=== PATIENT | female | born 1990 | race Caucasian/White ===

== ENCOUNTER 2016-05-12 12:00 | Day surgery (SDC) | payer OTHER ==
[2016-05-12] MEDS ORDERED: BUPIVACAINE HCL/PF 0.25% 10 ML VIAL INJ ONE (12:54)
[2016-05-12] MEDS ORDERED: FENTANYL 100 MCG/2 ML VIAL ONE (13:00)
[2016-05-12] MEDS ORDERED: MIDAZOLAM HCL 2 MG/2 ML VIAL ONE (13:00)
[2016-05-12] MEDS ORDERED: ONDANSETRON HCL 4 MG/2 ML VIAL ONE (13:00)
[2016-05-12] MEDS ORDERED: FENTANYL 100 MCG/2 ML VIAL IV PRN (13:10)
[2016-05-12] MEDS ORDERED: HYDROmorphone HCL 1 MG/ML SYR IV PRN (13:10)
[2016-05-12] MEDS ORDERED: BUPIVACAINE/EPI 0.25% 1 VIAL VIAL ONE (13:39)
[2016-05-12] MEDS ORDERED: LACTATED RINGERS 1,000 ML IV SCH (14:00)
--- NOTE | 2016-05-12 14:27 | PROCEDURE NOTE: Gen Surgery ---
General Surgery Procedure Note - Date of Encounter Date of Encounter: 05/12/16 - Brief Operative Note (1) Other benign neoplasm of skin of trunk Date of procedure: 05/12/16 Pre-Op Diagnosis: Left axillary mass Post-op diagnosis: same Procedure: Excision of left axillary mass Anesthesia Type: Mac Physician: RAHEL EASLEY Pathology: sent X-ray taken: No Images viewed by surgeon: No Images viewed by radiologist: No Sponge and instrument counts: correct Condition: stable Disposition: same day Narrative: There was not one discrete mass but multiple areas of lipomas with one firm area which may have been secondary to fat necrosis.
[2016-05-12 15:08] VITALS: TEMP 98.1
[2016-05-12 15:09] VITALS: PULSE 71; O2SAT 91
[2016-05-12 15:11] VITALS: BP 109/69; RESP 17
--- NOTE | 2016-05-12 18:53 | OPERATIVE REPORT ---
DATE OF SURGERY: 05/12/16 SURGEON: Virgilio Driver MD ANESTHESIA: Monitored anesthesia care by Yogi James CRNA. PREOPERATIVE DIAGNOSIS: Left axillary mass. POSTOPERATIVE DIAGNOSIS: Left axillary mass. PROCEDURE PERFORMED: Excision of left axillary mass. FINDINGS: At the time of exploration there was an approximately lemon-size mass of fatty tissue in the axilla. This was made up of multiple lobules of lipoma. There was 1 area which appeared firmer than the surrounding errors and may have undergone fat necrosis. SUMMARY: The patient was taken to the operating room and placed in the supine position. Time out was called and the correct patient, correct preoperative medications and correct procedure were verified. The left axilla was then prepped with ChloraPrep solution. After 3 minutes had elapsed for the prep to dry, draping occurred. The incision was marked out in a transverse orientation. Marcaine 0.25% without epinephrine was infiltrated and a total of about 45 mL was used. The skin was sharply incised. Deeper dissection was done with a cautery. The first few lipomas were identified, and shelled out or another area was removed en bloc with the surrounding subcutaneous tissue. Eventually the mass had been completely debulked. No other abnormalities were noted during the procedure. The inferior skin flap was button holed. This was about 1 cm from the edge of the incision. The subcutaneous tissue were then reapproximated with running 3-0 Vicryl. The inferior button hole was excised, and the inferior skin margin was 1 continuous edge. This was closed with a running 3-0 nylon suture. A dressing was then applied, and the patient was taken from the operating room to the recovery room. SHANDRA
--- NOTE | 2016-05-15 11:31 | PREOPERATIVE H&P ---
History of Present Illness (Virgilio Driver M.D.; 05/08/2016 11:41 AM) The patient is a 25 year old female who presents for evaluation of a lump. The lump was first noticed by the patient. The onset of the lump was gradual and has been occurring for 2 years. The course has been increasing. The discomfort associated with the lump is described as moderate. The lump is described as being located in the left axilla. There is/are 1 lump. The largest lump is described as being 6 centimeters in diameter. There has been associated pain, while there has been no associated redness or rash. Previous diagnostic tests have included none. Allergies (Lakshmi Herrera R.N.; 05/08/2016 11:18 AM) No Known Drug [id number]/2017 Penicillins (Amoxicillin, Augmentin, Unasyn...)04/28/2016 Vomiting. Family History (Lakshmi Herrera R.N.; 05/08/2016 11:18 AM) Maternal Grandmother CABG at 68 Father Healthy Mother Xenia: depression Melanoma Paternal aunt at age 36 from metastatic melanoma. Social History (Lakshmi Herrera R.N.; 05/08/2016 11:19 AM) Marital status Single. 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 Tobacco Use Never smoker. No drug use Medication History (Lakshmi Herrera R.N.; 05/08/2016 11:19 AM) Fluticasone Propionate (50MCG/ACT Suspension, 2 (two) Nasal squirts each nostril daily, Taken starting 04/09/2015) Active. (Use after nasal saline.) MonoNessa (0.25-35MG-MCG Tablet, 1 (one) Oral daily, Taken starting 04/28/2016 ) Active. ProAir HFA (108 (90 Base)MCG/ACT Aerosol Soln, 2 (two) Inhalation every 4 hours as needed, Taken starting 04/28/2016) Active. (Generic please. Also use 30 minutes prior to exercise) Citalopram Hydrobromide (20MG Tablet, 1 (one) Oral daily, Taken starting 2016) Active. Imitrex (100MG Tablet, 1 Oral at onset of headache) Active. Pepcid AC (10MG Tablet, 1-2 times Oral per week,) Active. Medications Reconciled Past Surgical History (Lakshmi Herrera R.N.; 05/08/2016 11:19 AM) None05/08/2016 Review of Systems (Virgilio Driver M.D.; 05/08/2016 11:42 AM) General Present- Feeling well. Not Present- Chills and Fever. Respiratory Not Present- Cough. Cardiovascular Not Present- Heart Problems. Gastrointestinal Not Present- GI Problems. Vitals (Lakshmi Herrera R.N.; 05/08/2016 11:18 AM) 05/08/2016 11:15 AM Weight: 191 lb Height: 65.5in Body Surface Area: 1.95 m Body Mass Index: 31.3 kg/m Pain Level: 03/18 Temp.: 97.2F(Temporal) Pulse: 85 (Regular) P.OX: 94% (Room air) BP: 100/70 (Sitting, Left Arm, Standard) 1 - 04/18 at Left axillary region Physical Exam (Virgilio Driver M.D.; 05/08/2016 11:45 AM) Integumentary Skin Lesions-Lipomas(6cm by 6cm). Chest and Lung Exam Chest and lung exam reveals -Clear. Cardiovascular Cardiovascular examination reveals -RRR, No murmurs present. Assessment & Plan (Virgilio Driver M.D.; 05/08/2016 12:01 PM) Lipoma of axilla (D17.20) Benign neoplasm of skin of axilla (D23.5) Current Plans RMV BGN LSN TRNK/ARM/LEG >4.0 CM (30227) Started Hydrocodone-Acetaminophen 5-325MG, 1 (one) Tablet every four hours, as needed, #10, 5 days starting 05/08/2016, No Refill. Pt Education - Post operative Home Care Instructions for Breast Surgery Patients Signed by Virgilio Driver M.D. (05/08/2016 12:02 PM) SHANDRA
== END 2016-05-12 14:44 | disposition home or self-care (01) ==
LOC: SDS 12:00
PROVIDERS: ATTEND Surgery
DX: D23.5 Other benign neoplasm of skin of trunk (principal); G47.00 Insomnia, unspecified; Z79.899 Other long term (current) drug therapy
CPT/HCPCS: 84703; J2250; J2405